=== PATIENT | female | born 1945 | race Hispanic/Latino ===

== ENCOUNTER 2021-09-26 15:51 | Emergency (ER) | payer OTHER ==
[~2021-09-26] VITALS: Ht 157.5 cm; Wt 65.8 kg
[~2021-09-26 15:51] MED LIST: AMLODIPINE BESY10 MG PO; TYLENOL WITH C1 EACH PO
[2021-09-26 16:19] LABS: BASOPHILS % 0.2 % (0.0-1.0); EOSINOPHILS # (AUTO) 0.1 (0.0-0.4); EOSINOPHILS % 1.7 % (0.0-6.0); HEMATOCRIT 30.5 % (34.2-44.1); HEMOGLOBIN 9.5 g/dL (12.0-16.0); LYMPHOCYTES # (AUTO) 0.6 (1.0-3.2); MEAN CORPUSCULAR HEMOGLOBIN 30.1 pg (28-32); MEAN CORPUSCULAR HGB CONC 31.1 g/dL (31-35); MEAN CORPUSCULAR VOLUME 96.5 fL (81-99); MONOCYTES # (AUTO) 0.3 (0.2-0.8); MONOCYTES % 6.3 % (4.4-11.3); NEUTROPHILS # (AUTO) 3.6 (2.1-6.9); NEUTROPHILS % 78.9 % (38.7-80.0); PLATELET COUNT 184 x10e3/uL (140-360); RED BLOOD COUNT 3.16 x10e6/uL (3.6-5.1); RED CELL DISTRIBUTION WIDTH 13.6 % (11.7-14.4)
[2021-09-26 16:32] LABS: CLARITY,URINE HAZY (CLEAR); COLOR,URINE YELLOW (YELLOW); LEUKOCYTE ESTERASE ,URINE NEGATIVE (NEGATIVE)
[2021-09-26 16:33] LABS: KETONES,URINE NEGATIVE (NEGATIVE); NITRITE,URINE NEGATIVE (NEGATIVE); PROTEIN,URINE DIPSTICK NEGATIVE (NEGATIVE); URINE UROBILINOGEN 0.2 mg/dL (0.2 - 1)
[2021-09-26 16:42] LABS: INR 1.1; PARTIAL THROMBOPLASTIN TIME 29.6 seconds (23.8-35.5)
[2021-09-26 16:44] LABS: ALBUMIN/GLOBULIN RATIO 0.9 (0.8-2.0); CALCIUM 9.1 mg/dL (8.4-10.2); CREATININE, SERUM 1.62 mg/dL (0.57-1.11)
[2021-09-26 16:46] LABS: BACTERIA,URINE FEW /HPF; EPITHELIAL CELLS,URINE FEW /LPF; RBC,URINE 0-5 /HPF (0-5); WBC,URINE (MAN) 0-5 /HPF (0-5)
[2021-09-26] MEDS ORDERED: LIDOCAINE HCL 1% 2 ML AMP ONE (17:44)
== END 2021-09-26 17:51 | disposition home or self-care (01) ==
LOC: ER 16:41
DX: U07.1 COVID-19 (principal); S01.01XA Laceration without foreign body of scalp, initial encounter; R42 Dizziness and giddiness; W18.39XA Other fall on same level, initial encounter; Y93.01 Activity, walking, marching and hiking; Y92.89 Other specified places as the place of occurrence of the external cause
CPT/HCPCS: 12002; 36415; 70450; 70486; 71045; 72125; 73080; 73130; 80053; 81001; 82550; 82553; 83735; 84484; 85025; 85610; 85730; 93005; 99284; J2001; U0002

== ENCOUNTER 2022-01-04 11:46 | Inpatient (IN) | payer OTHER ==
[~2022-01-04] VITALS: Ht 157.5 cm; Wt 61.2 kg
[2022-01-04 12:28] LABS: BASOPHILS % 0.3 % (0.0-1.0); EOSINOPHILS % 0.1 % (0.0-6.0); HEMATOCRIT 27.3 % (34.2-44.1); HEMOGLOBIN 8.7 g/dL (12.0-16.0); LYMPHOCYTES # (AUTO) 0.4 (1.0-3.2); LYMPHOCYTES % 4.5 % (18.0-39.1); MEAN CORPUSCULAR HEMOGLOBIN 29.4 pg (28-32); MEAN CORPUSCULAR HGB CONC 31.9 g/dL (31-35); MEAN CORPUSCULAR VOLUME 92.2 fL (81-99); MONOCYTES # (AUTO) 0.9 (0.2-0.8); MONOCYTES % 8.9 % (4.4-11.3); NEUTROPHILS # (AUTO) 8.2 (2.1-6.9); NEUTROPHILS % 85.5 % (38.7-80.0); PLATELET COUNT 271 x10e3/uL (140-360); RED BLOOD COUNT 2.96 x10e6/uL (3.6-5.1); RED CELL DISTRIBUTION WIDTH 14.3 % (11.7-14.4)
[2022-01-04 12:44] LABS: ANION GAP 16.7 mmol/L (8-16); CALCIUM 8.8 mg/dL (8.4-10.2); CREATININE, SERUM 2.51 mg/dL (0.57-1.11); POTASSIUM 3.7 mmol/L (3.5-5.1)
[2022-01-04] MEDS ORDERED: ACETAMINOPHEN 325 MG TAB PO ONE (12:45)
[2022-01-04] MEDS ORDERED: LACTATED RINGER'S 500 ML IV ONE (13:30)
[2022-01-04 13:34] LABS: CREATINE KINASE 126 IU/L (29-168)
[2022-01-04 16:13] VITALS: BP 137/60
[2022-01-04 16:22] VITALS: BP 137/60
[2022-01-04] MEDS: ALBUTEROL/IPRATROPIUM 3 ML NEB NEB SCH ×2 (16:53→20:05)
[2022-01-04] MEDS: BENZONATATE 100 MG CAP PO SCH ×2 (17:43→20:09)
[2022-01-04 20:56] LABS: CREATINE KINASE 134 IU/L (29-168)
[2022-01-04 21:01] VITALS: BP 129/61
[2022-01-04 21:47] VITALS: BP 129/61
[2022-01-05] VITALS (7 sets, daily range): BP systolic 125–147; BP diastolic 73–86
[2022-01-05] MEDS: ACETAMINOPHEN 325 MG TAB PO PRN ×2 (00:25→11:27)
[2022-01-05] MEDS ORDERED: TRIAMTERENE-HCTZ1 EA PO ×2 (01:15→01:22)
[2022-01-05] MEDS: ALBUTEROL/IPRATROPIUM 3 ML NEB NEB SCH ×4 (01:15→20:04)
[2022-01-05 05:49] LABS: CREATINE KINASE MB 1.8 ng/mL (0-5.0)
[2022-01-05] MEDS: BENZONATATE 100 MG CAP PO SCH ×3 (09:54→20:29)
[2022-01-05] MEDS ORDERED: ZOLPIDEM TARTRATE 5 MG TAB PO PRN (13:00)
[2022-01-05] MEDS ORDERED: ONDANSETRON HCL INJ 2MG/ML 2ML 2 MG/ML VIAL IV PRN (13:00)
[2022-01-05] MEDS ORDERED: METHYLPREDNISOLONE SOD SUCC 40 MG/ML VIAL 1ML IV ONE (13:00)
[2022-01-05] MEDS: GUAIFENESIN/CODEINE 5 ML LIQD PO PRN (13:37)
[2022-01-05 19:54] LABS: PHOSPHORUS 3.4 MG/DL (2.3-4.7)
[2022-01-06] MEDS: ALBUTEROL/IPRATROPIUM 3 ML NEB NEB SCH ×4 (00:37→19:52)
[2022-01-06] MEDS: GUAIFENESIN/CODEINE 5 ML LIQD PO PRN (05:00)
[2022-01-06 05:48] VITALS: BP 158/76
[2022-01-06 06:13] LABS: BASOPHILS % 0.1 % (0.0-1.0); HEMATOCRIT 23.2 % (34.2-44.1); HEMOGLOBIN 7.6 g/dL (12.0-16.0); LYMPHOCYTES # (AUTO) 0.5 (1.0-3.2); LYMPHOCYTES % 6.8 % (18.0-39.1); MEAN CORPUSCULAR HEMOGLOBIN 29.6 pg (28-32); MEAN CORPUSCULAR HGB CONC 32.8 g/dL (31-35); MEAN CORPUSCULAR VOLUME 90.3 fL (81-99); MONOCYTES # (AUTO) 0.3 (0.2-0.8); MONOCYTES % 3.3 % (4.4-11.3); NEUTROPHILS # (AUTO) 6.9 (2.1-6.9); PLATELET COUNT 290 x10e3/uL (140-360); RED BLOOD COUNT 2.57 x10e6/uL (3.6-5.1); RED CELL DISTRIBUTION WIDTH 14.3 % (11.7-14.4)
[2022-01-06 07:00] LABS: ALBUMIN 2.7 g/dL (3.5-5.0); ALBUMIN/GLOBULIN RATIO 0.5 (0.8-2.0); ANION GAP 14.2 mmol/L (8-16); CALCIUM 8.5 mg/dL (8.4-10.2); POTASSIUM 4.2 mmol/L (3.5-5.1)
[2022-01-06 07:47] VITALS: BP 135/75
[2022-01-06 07:47] LABS: LYMPHOCYTES % (MANUAL) 4 % (19-48); MONOCYTES % (MANUAL) 4 % (3.4-9.0); NEUTROPHILS % (MANUAL) 92 % (40-74); PLATELET ESTIMATE ADEQUATE
[2022-01-06 07:48] LABS: PLATELET MORPHOLOGY COMMENT NORMAL; RBC MORPHOLOGY COMMENT NORMAL
[2022-01-06 07:52] VITALS: BP 135/75
[2022-01-06] MEDS: AZITHROMYCIN 250 MG TAB PO SCH (09:23)
[2022-01-06] MEDS: BENZONATATE 100 MG CAP PO SCH ×3 (09:23→20:07)
[2022-01-06 12:02] VITALS: BP 141/80
[2022-01-06] MEDS: SODIUM CHLORIDE 0.9% 1000ML 1,000 ML IV SCH (12:17)
[2022-01-06 15:38] LABS: ANION GAP 15.7 mmol/L (8-16); CALCIUM 8.5 mg/dL (8.4-10.2); CREATININE, SERUM 2.2 mg/dL (0.57-1.11); POTASSIUM 4.7 mmol/L (3.5-5.1)
[2022-01-06 16:20] VITALS: BP 172/96
[2022-01-06 16:36] LABS: CLARITY,URINE SL CLOUDY (CLEAR); COLOR,URINE YELLOW (YELLOW); LEUKOCYTE ESTERASE ,URINE NEGATIVE (NEGATIVE); NITRITE,URINE NEGATIVE (NEGATIVE); PROTEIN,URINE DIPSTICK NEGATIVE (NEGATIVE)
[2022-01-06 16:37] LABS: KETONES,URINE NEGATIVE (NEGATIVE); URINE UROBILINOGEN 0.2 mg/dL (0.2 - 1)
[2022-01-06 16:49] LABS: CREATININE,URINE RANDOM 55.57 mg/dL (47-110); SODIUM,URINE 89 mmol/L; TOTAL PROTEIN, URINE 10.9 mg/dL (1-14)
[2022-01-06 17:09] LABS: EOSINOPHIL SMEAR,URINE NONE SEEN (NONE SEEN)
[2022-01-06] MEDS: ACETAMINOPHEN 325 MG TAB PO PRN (17:39)
[2022-01-06 20:17] VITALS: BP 144/78
[2022-01-07] VITALS (8 sets, daily range): BP systolic 125–161; BP diastolic 59–91
[2022-01-07] MEDS: ALBUTEROL/IPRATROPIUM 3 ML NEB NEB SCH ×4 (00:11→19:40)
[2022-01-07] MEDS: SODIUM CHLORIDE 0.9% 1000ML 1,000 ML IV SCH ×2 (00:48→17:15)
[2022-01-07] MEDS: ACETAMINOPHEN 325 MG TAB PO PRN ×2 (01:23→07:32)
[2022-01-07] MEDS: GUAIFENESIN/CODEINE 5 ML LIQD PO PRN ×2 (01:23→07:32)
[2022-01-07] MEDS: BENZONATATE 100 MG CAP PO SCH ×3 (09:25→21:48)
[2022-01-07] MEDS: AZITHROMYCIN 250 MG TAB PO SCH (09:25)
[2022-01-07] MEDS ORDERED: HYDROCODONE/APAP 5MG-325MG TAB PO ONE (09:30)
[2022-01-07] MEDS ORDERED: METHYLPREDNISOLONE SOD SUCC 40 MG/ML VIAL 1ML IV ONE (09:30)
[2022-01-07 12:29] LABS: BASOPHILS % 0.3 % (0.0-1.0); EOSINOPHILS % 0.3 % (0.0-6.0); HEMATOCRIT 25.9 % (34.2-44.1); LYMPHOCYTES # (AUTO) 0.4 (1.0-3.2); LYMPHOCYTES % 3.9 % (18.0-39.1); MEAN CORPUSCULAR HEMOGLOBIN 29.6 pg (28-32); MEAN CORPUSCULAR HGB CONC 30.9 g/dL (31-35); MEAN CORPUSCULAR VOLUME 95.9 fL (81-99); MONOCYTES # (AUTO) 0.5 (0.2-0.8); MONOCYTES % 4.1 % (4.4-11.3); NEUTROPHILS # (AUTO) 9.5 (2.1-6.9); PLATELET COUNT 313 x10e3/uL (140-360); RED CELL DISTRIBUTION WIDTH 14.6 % (11.7-14.4)
[2022-01-07 12:47] LABS: ANION GAP 15.5 mmol/L (8-16); CALCIUM 8.3 mg/dL (8.4-10.2); CREATININE, SERUM 1.49 mg/dL (0.57-1.11); POTASSIUM 4.5 mmol/L (3.5-5.1)
[2022-01-07] MEDS ORDERED: BISACODYL 5 MG TAB EC PO PRN (21:45)
[2022-01-08] VITALS (8 sets, daily range): BP systolic 145–182; BP diastolic 63–81
[2022-01-08] MEDS: ALBUTEROL/IPRATROPIUM 3 ML NEB NEB SCH ×3 (00:30→18:45)
[2022-01-08] MEDS: ACETAMINOPHEN 325 MG TAB PO PRN (04:16)
[2022-01-08] MEDS: GUAIFENESIN/CODEINE 5 ML LIQD PO PRN ×2 (04:16→22:09)
[2022-01-08 06:51] LABS: BASOPHILS % 0.2 % (0.0-1.0); HEMATOCRIT 23.1 % (34.2-44.1); HEMOGLOBIN 7.2 g/dL (12.0-16.0); LYMPHOCYTES # (AUTO) 0.5 (1.0-3.2); LYMPHOCYTES % 5.8 % (18.0-39.1); MEAN CORPUSCULAR HEMOGLOBIN 29.6 pg (28-32); MEAN CORPUSCULAR HGB CONC 31.2 g/dL (31-35); MEAN CORPUSCULAR VOLUME 95.1 fL (81-99); MONOCYTES # (AUTO) 0.4 (0.2-0.8); MONOCYTES % 4.3 % (4.4-11.3); NEUTROPHILS # (AUTO) 7.4 (2.1-6.9); NEUTROPHILS % 82.2 % (38.7-80.0); PLATELET COUNT 317 x10e3/uL (140-360); RED BLOOD COUNT 2.43 x10e6/uL (3.6-5.1); RED CELL DISTRIBUTION WIDTH 14.6 % (11.7-14.4)
[2022-01-08 07:16] LABS: ANION GAP 13.8 mmol/L (8-16); CREATININE, SERUM 1.25 mg/dL (0.57-1.11); PHOSPHORUS 3.7 MG/DL (2.3-4.7); POTASSIUM 4.8 mmol/L (3.5-5.1)
[2022-01-08 07:37] LABS: FERRITIN 200.66 ng/mL (4.63-204.00)
[2022-01-08] MEDS: AZITHROMYCIN 250 MG TAB PO SCH (08:59)
[2022-01-08] MEDS: BENZONATATE 100 MG CAP PO SCH ×3 (08:59→22:09)
[2022-01-08] MEDS ORDERED: METHYLPREDNISOLONE SOD SUCC 40 MG/ML VIAL 1ML IV ONE (09:00)
[2022-01-08] MEDS: PANTOPRAZOLE SOD 40 MG TABEC PO SCH (09:36)
[2022-01-08] MEDS: SODIUM BICARBONATE 650 MG TAB PO SCH (15:18)
[2022-01-09] VITALS (7 sets, daily range): BP systolic 143–169; BP diastolic 68–83
[2022-01-09] MEDS: ALBUTEROL/IPRATROPIUM 3 ML NEB NEB SCH ×4 (01:25→19:40)
[2022-01-09 06:14] LABS: CALCIUM 8.1 mg/dL (8.4-10.2); CREATININE, SERUM 1.21 mg/dL (0.57-1.11)
[2022-01-09] MEDS ORDERED: FERROUS SULFATE 325 MG TAB PO SCH (09:00)
[2022-01-09] MEDS ORDERED: LISINOPRIL 10 MG TAB PO SCH (09:30)
[2022-01-09] MEDS: PANTOPRAZOLE SOD 40 MG TABEC PO SCH (09:34)
[2022-01-09] MEDS: AZITHROMYCIN 250 MG TAB PO SCH (09:34)
[2022-01-09] MEDS: SODIUM BICARBONATE 650 MG TAB PO SCH (09:34)
[2022-01-09] MEDS: BENZONATATE 100 MG CAP PO SCH ×2 (09:34→14:38)
[2022-01-09] MEDS ORDERED: Ferrous Sulfate PO (17:49)
[2022-01-09] MEDS ORDERED: SODIUM BICARBO650 MG PO (17:49)
[2022-01-09] MEDS ORDERED: PROTONIX40 MG/ML PO (17:49)
[2022-01-09] MEDS ORDERED: LISINOPRIL10 MG PO (17:49)
[2022-01-09] MEDS ORDERED: Albuterol/Ipratropium Nebulize NEB (17:49)
[2022-01-10 13:17] LABS: ALPHA 2 GLOBULIN URINE PEP 20.3 % (.)
== END 2022-01-09 20:14 | disposition home health service (06) | DRG 196 ==
LOC: ER 12:00 → ERHOLD 13:02 → MED/SURG3 14:53
PROVIDERS: ADMIT Internal Medicine; ATTEND Internal Medicine
DX: J84.89 Other specified interstitial pulmonary diseases (principal); N17.0 Acute kidney failure with tubular necrosis; E87.2 Acidosis; K21.9 Gastro-esophageal reflux disease without esophagitis; I12.9 Hypertensive chronic kidney disease with stage 1 through stage 4 chronic kidney disease, or unspecified chronic kidney disease; D50.0 Iron deficiency anemia secondary to blood loss (chronic); R09.02 Hypoxemia; N18.32 Chronic kidney disease, stage 3b
CPT/HCPCS: 36415; 71045; 71250; 74230; 76770; 80048; 80053; 81001; 81015; 82550; 82553; 82570; 82728; 83540; 83605; 83735; 83880; 83970; 84100; 84156; 84165; 84166; 84300; 84466; 84484; 84550; 85025; 86021; 86039; 86160; 86431; 87040; 87340; 93005; 93306; 94640; 94760; 94799; 99284; J0456; J0696; J2920; J7030; J7050; J7121; U0002

== ENCOUNTER 2024-11-08 18:46 | Emergency (ER) | payer MEDICARE, OTHER ==
[~2024-11-08] VITALS: Ht 157.5 cm; Wt 62.6 kg
[~2024-11-08 18:46] MED LIST changes: +Albuterol/Ipratropium Nebulize NEB; +Ferrous Sulfate PO; +LISINOPRIL10 MG PO; +PROTONIX40 MG/ML PO; +SODIUM BICARBO650 MG PO; +TRIAMTERENE-HCTZ1 EA PO
[2024-11-08 19:34] LABS: BASOPHILS % 0.2 % (0.0-1.0); EOSINOPHILS # (AUTO) 0.1 (0.0-0.4); EOSINOPHILS % 1.3 % (0.0-6.0); HEMATOCRIT 26.8 % (34.2-44.1); HEMOGLOBIN 8.8 g/dL (12.0-16.0); LYMPHOCYTES # (AUTO) 1.2 (1.0-3.2); LYMPHOCYTES % 22.1 % (18.0-39.1); MEAN CORPUSCULAR HEMOGLOBIN 30.6 pg (28-32); MEAN CORPUSCULAR HGB CONC 32.8 g/dL (31-35); MEAN CORPUSCULAR VOLUME 93.1 fL (81-99); MONOCYTES # (AUTO) 0.4 (0.2-0.8); MONOCYTES % 7.8 % (4.4-11.3); NEUTROPHILS # (AUTO) 3.7 (2.1-6.9); NEUTROPHILS % 68.2 % (38.7-80.0); PLATELET COUNT 250 x10e3/uL (140-360); RED BLOOD COUNT 2.88 x10e6/uL (3.6-5.1); RED CELL DISTRIBUTION WIDTH 13.7 % (11.7-14.4); WHITE BLOOD COUNT 5.38 x10e3/uL (4.8-10.8)
[2024-11-08 20:00] LABS: ALBUMIN 3.7 g/dL (3.5-5.0); ALBUMIN/GLOBULIN RATIO 0.9 (0.8-2.0); ALKALINE PHOSPHATASE 68 IU/L (40-150); ANION GAP 15.1 mmol/L (8-16); BILIRUBIN,TOTAL 0.6 mg/dL (0.2-1.2); BLOOD UREA NITROGEN 33 mg/dL (7-26); BUN/CREATININE RATIO 15 (6-25); CALCIUM 8.7 mg/dL (8.4-10.2); CARBON DIOXIDE 18 mmol/L (22-29); CHLORIDE 107 mmol/L (98-107); CREATINE KINASE 41 IU/L (29-168); CREATININE, SERUM 2.15 mg/dL (0.57-1.11); EST GLOMERULAR FILTRATION RATE 23 ML/MIN (>=60); GLUCOSE 98 mg/dL (74-118); POTASSIUM 4.1 mmol/L (3.5-5.1); SODIUM 136 mmol/L (136-145); TOTAL PROTEIN 7.6 g/dL (6.5-8.1)
[2024-11-08 20:06] LABS: TROPONIN I 0.024 ng/mL (0-0.300)
[2024-11-08 20:08] LABS: ALANINE AMINOTRANSFERASE < 6 IU/L (0-55)
[2024-11-08] MEDS: HYDRALAZINE HCL 20 MG/ML VIAL IV STA (21:33)
[2024-11-08 21:45] VITALS: TEMP 97.9
[2024-11-08 22:00] VITALS: PULSE 61; RESP 27
[2024-11-08 22:01] VITALS: BP 185/53; PULSE 61; RESP 22; TEMP 97.9; O2SAT 97
== END 2024-11-08 22:20 | disposition other institution (70) ==
LOC: ER 18:59
DX: R06.02 Shortness of breath (principal); I44.1 Atrioventricular block, second degree; I50.9 Heart failure, unspecified; N28.9 Disorder of kidney and ureter, unspecified; I10 Essential (primary) hypertension; R53.1 Weakness; R53.81 Other malaise; M81.0 Age-related osteoporosis without current pathological fracture; R94.31 Abnormal electrocardiogram [ECG] [EKG]
CPT/HCPCS: 36415; 71045; 80053; 82550; 83690; 83880; 84484; 85025; 93005; 99284; J0360